=== PATIENT | female | born 1930 | race Caucasian/White ===

== ENCOUNTER 2017-09-27 16:00 | Inpatient (IN) ==
--- NOTE | 2017-09-27 23:25 | Internal Med History&Physical ---
Date of Encounter: 09/27/17 Time of Encounter: 23:03 Internal Medicine - H&P: HPI Admitted From: Intrahospital Transfer Plans for Post Hospital Care: Home History of present illness: Ms. Gonzales is a 87 year old female with past medical history of Severe acid reflux, hernia, OA, and bilateral knee and hip surgery. Pt states she she has woken up about 2 or 3 am since wed with symptoms of acid reflux. States her symptoms have gotten progressively worse. Pt states she had ED done by Dr. Tapia years ago and was told she had an ulcer. Pt states she takes tums frequently and also takes Omeprazole but with little relief. Pt also reports that on Wednesday while she was reading the newspaper her vision became blurry, numbers on the clock where going would "flash" and " disappear." She did not knowing meaning of words. States this persist till this morning so she told her she felt something was wrong and he called the squad. States she has severe OA and is not sure if she has any changes to ambulating as she typically has difficulty walking due to her hx OA. Pt denies difficulty swallowing or speaking. CT head as below. Case was discussed with Dr. Damon who recommended further CVA workup. CODE STATUS: FULL. At michi WBC 12.5, hgb 11.6, hct 34.7, plt 209. troponin <0.03 Na 140, K 3.3, BUN 16, Cr 0.98. lactic 1.0, glucose 128. 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 Further evaluation with contrast-enhanced MRI of the brain is recommended. Past Med Surg Social Fam HX - Past Medical History Medical history: arthritis, hypertension Psychiatric history: no psych history - Social History Smoking Status: Never smoker Smokeless Tobacco Status: No Alcohol use: none Drug use: none - Family History Mother Living Status: Hx Family Cardiac Disorders: Yes ([place]) Hx Family Neurologic Disorders: Yes (3 CVA) Father Living Status: Hx Family Cardiac Disorders: Yes ([place]) Internal Medicine - H&P: Meds Allopurinol [Zyloprim 100 MG] 100 mg PO DAILY 09/27/17 [History] Carvedilol [Coreg] 6.25 mg PO BID 09/27/17 [History] Cholecalciferol (Vitamin D3) [Vitamin D] 1,000 unit PO DAILY 09/27/17 [History] Levothyroxine [Synthroid] 100 mcg PO DAILY 09/27/17 [History] Losartan Potassium [Cozaar] 100 mg PO DAILY 09/27/17 [History] MiraLAX 09/27/17 [History] amLODIPine [Norvasc] 5 mg PO DAILY 09/27/17 [History] predniSONE [Prednisone] 7.5 mg PO DAILY 09/27/17 [History] 3 Allergy/AdvReac Type Severity Reaction Status Date / Time Sulfa (Sulfonamide Allergy Hives Verified 09/27/17 11:28 Antibiotics) All Systems PM: A 10-system review of systems was performed and is negative for pertinent findings except as documented above in the HPI. - Constitutional Vitals: Temp Pulse Resp BP Pulse Ox 98.4 F 69 16 168/73 96 09/27/17 22:58 09/27/17 22:58 09/27/17 22:58 09/27/17 22:58 09/27/17 22:58 General appearance: Present: A&O X 3, no acute distress - Head Head exam: Present: atraumatic, normocephalic - Eye Eye exam: Present: PERRL, conjuntiva pink, sclera anicteric Pupils: Present: PERRL - Neck Neck exam general surgery: Present: supple, trachea midline. Absent: lymphadenopathy - Respiratory Respiratory exam: Present: CTAB. Absent: accessory muscle use, rales, rhonchi, wheezes - Cardiovascular Cardiovascular exam: Present: RRR, +S1, +S2. Absent: diastolic murmur, gallop, rubs, systolic murmur - GI/Abdominal GI/Abdominal exam: Present: normal bowel sounds, soft, no peritoneal signs. Absent: distended, tenderness Additional comments: hiatal hernia - Extremities Exam Extremities exam: Present: warm, radial pulses palpable and symmetrical. Absent : calf tenderness, cyanotic, pedal edema - Neurological Exam Neurological exam: Present: CN II-XII intact, oriented X3, no focal deficits. Absent: pronater drift, facial droop, speech deficit - Skin Skin exam: Present: dry, intact - Assessment and plan (1) CVA (cerebral vascular accident) Current Visit: No Status: Acute Assessment and plan: Will complete CVA work up per neurology recommendation. Will place on ASA and statin. 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 Further evaluation with contrast-enhanced MRI of the brain is recommended. Qualifiers: CVA mechanism: unspecified Qualified Code(s): I63.9 - Cerebral infarction, unspecified (2) Acid reflux Current Visit: Yes Status: Acute Assessment and plan: Protonix BID IV. Consulting GI due to severity of symptoms. Qualifiers: Qualified Code(s): K21.9 - Gastro-esophageal reflux disease without esophagitis (3) Leukocytosis Current Visit: Yes Status: Acute Assessment and plan: Will check urine culture. Will check CBC in am. Qualifiers: Qualified Code(s): D72.829 - Elevated white blood cell count, unspecified (4) Osteoarthritis Current Visit: Yes Status: Acute Assessment and plan: Will resume home meds. Qualifiers: Qualified Code(s): M19.90 - Unspecified osteoarthritis, unspecified site (5) Hypokalemia Current Visit: Yes Status: Acute Assessment and plan: Will replace and recheck in am. (6) Chest pain Current Visit: No Status: Acute Assessment and plan: Will place on ASA, nitro SL prn, will cycle troponin. CP more likely related to hernia and severe acid reflux. Qualifiers: Chest pain type: unspecified Qualified Code(s): R07.9 - Chest pain, unspecified - Time Spent With Patient Total time spent is greater than 50% in coordination of care (as documented) at patient's floor/unit and/or counseling patient: 25 - 35 minutes
[2017-09-27] MEDS ORDERED: Acetaminophen 650 MG RECTAL SUPP RC PRN (23:31)
[2017-09-27] MEDS ORDERED: Acetaminophen 325 MG TABLET PO PRN (23:31)
[2017-09-27] MEDS ORDERED: Nitroglycerin 0.4 MG TAB.SUBL SL PRN (23:31)
[2017-09-27] MEDS ORDERED: Gadolinium Contrast Agent (WT Based) IV PRN (23:31)
[2017-09-27] MEDS ORDERED: Naloxone 0.4 MG/ML INJ IVP PRN (23:31)
[2017-09-27] MEDS: 0.9 % Sodium Chloride 1,000 ML IVC SCH (23:54)
[2017-09-28 00:50] LABS: Basophils % 0.1 %; Eosinophils % 0.3 %; Hematocrit 34.2 % (35.3-44.9); Hemoglobin 11.3 g/dL (11.5-15.4); Immature Granulocytes % 0.5 % (0-4); Lymphocytes # 1.9 K/mcL (0.6-4.6); Lymphocytes % 19.4 %; Mean Corpuscular Hemoglobin 30.9 pg (28.0-33.3); Mean Corpuscular Volume 93.4 fL (83.0-100.0); Mean Platelet Volume 10.6 fL (9.4-12.4); Monocytes # 0.9 K/mcL (0.0-1.3); Neutrophils # 7.1 K/mcL (1.6-8.9); Platelet Count 189 K/mcL (140-400); Red Blood Count 3.66 M/mcL (3.82-4.97); Red Cell Distribution Width 15.9 % (11.5-14.5); Segmented Neutrophils % 70.7 %
[2017-09-28 00:50] LABS: Bilirubin,Urine Negative (Negative); Blood,Urine Negative (Negative); Clarity,Urine Clear (Clear); Color,Urine Yellow (Yellow); Glucose,Urine (UA) Normal (Normal); Ketones,Urine Trace mg/dL (Negative); Leukocyte Esterase,Urine Small (Negative); Nitrite,Urine Negative (Negative); Protein,Urine Negative (Neg-Trace); Specific Gravity,Urine 1.013 (1.010-1.025); Urobilinogen,Urine Normal (Normal)
[2017-09-28 00:52] LABS: Bacteria,Urine None Seen per hpf (None-Few); Hyaline Casts,Urine None Seen per lpf (None-Few); RBC,Urine 0-3 per hpf (0-3); Squamous Epithelial Cell,Urine Few per lpf (None-Few)
[2017-09-28 01:30] LABS: INR 1.1; Prothrombin Time 12.3 Seconds (9.4-12.1)
[2017-09-28 01:51] LABS: Albumin 3.6 g/dL (3.5-5.7); Albumin/Globulin Ratio 1.3 (1.1-2.2); Bilirubin,Total 1.5 mg/dL (0.3-1.0); Calcium 8.8 mg/dL (8.6-10.3); Chol/HDL Ratio 1.9 (0-4.9); Globulin 2.7 g/dL (2.4-3.5); Magnesium 1.8 mg/dL (1.6-2.6); Potassium 3.2 mEq/L (3.5-5.1); Total Protein 6.3 g/dL (6.4-8.9)
[2017-09-28] MEDS: *HR* HYDROcodone/Acet 5/325 mg TABLET PO PRN ×2 (03:25→16:31)
[2017-09-28] MEDS: Pantoprazole 40 MG VIAL IVP SCH ×2 (05:25→16:27)
[2017-09-28] MEDS: predniSONE 5 MG TABLET PO SCH (11:23)
[2017-09-28] MEDS: Cholecalciferol (D-3) 1,000 UNIT TABLET PO SCH (11:23)
[2017-09-28] MEDS: amLODIPine 5 MG TABLET PO SCH (11:23)
[2017-09-28] MEDS: Aspirin Enteric Coated 81 MG Tablet PO SCH (11:23)
[2017-09-28] MEDS: 0.9 % Sodium Chloride 1,000 ML IVC SCH ×2 (11:39→20:43)
--- NOTE | 2017-09-28 12:20 | Gastroenterology Consult Note ---
Date of Encounter: 09/28/17 Time of Encounter: 11:05 - Assessment and plan (1) Acid reflux Current Visit: Yes Status: Acute Assessment and plan: Continue PPI and plan for EGD today to r/o esophagitis, gastritis, duodenitis, PUD, MW tear, or AVM. Qualifiers: Qualified Code(s): K21.9 - Gastro-esophageal reflux disease without esophagitis (2) Hypokalemia Current Visit: Yes Status: Acute Assessment and plan: Replace K prior to EGD. - Time Spent With Patient Total time spent is greater than 50% in coordination of care (as documented) at patient's floor/unit and/or counseling patient: GI History of Present Illness - Data of Consult Patient: new to practice Consult date: 09/28/17 Requesting Physician: Shine Villarreal MD - Consult Narrative Reason for consult: Severe acid reflux History of present illness: Ms. Gonzales is a 87 year old female with PMHx of severe acid reflux, arthritis, HTN who presented to ED with chest discomfort for 3 days. She notices it particularly at night which is try to lay down but insists that the discomfort is still present if she sitting or standing. She denies any actual aggravating or alleviating factors. Pt also reports that on Wednesday while she was reading the newspaper her vision became blurry, numbers on the clock where going would "flash" and " disappear." She did not knowing meaning of words. She was transferred here for further evaluation of possible CVA. We have been consulted to evaluate her reflux. Procedures: EGD 04/21/2012 Dr. Franco: Schatzki's ring, moderate hiatal hernia. Colonoscopy 04/21/2012 Dr. Franco: Terminal ileum ulcer, internal hemorrhoids. NSAIDs: None Anticoagulation: None Past Med Surg Social Fam HX - Past Medical History Medical history: arthritis, hypertension Psychiatric history: no psych history - Social History Smoking Status: Never smoker Smokeless Tobacco Status: No Alcohol use: none Drug use: none - Family History Mother Living Status: Hx Family Cardiac Disorders: Yes ([place]) Hx Family Neurologic Disorders: Yes (3 CVA) Father Living Status: Hx Family Cardiac Disorders: Yes ([place]) - Gastrointestinal Gastrointestinal: Present: as per HPI - Constitutional Constitutional: as per HPI - EENT Eyes: as per HPI Ears: Present: as per HPI Nose, mouth and throat: Present: as per HPI - Cardiovascular Cardiovascular ROS: Present: as per HPI - Respiratory Respiratory IM: Present: as per HPI - Genitourinary Genitourinary: Absent: change in color, Urinary frequency - Neurological ROS Neurological GI: Present: as per HPI - Hematologic/Lymphatic Hematologic/Lymphatic pediatric: Present: as per HPI - Musculoskeletal Musculoskeletal ROS GI: Present: as per HPI - Integumentary Integumentary GI: Present: as per HPI - Psychiatric ROS Psychiatric GI: Present: as per HPI - Endocrine Endocrine IM: Present: as per HPI - Constitutional Vitals: Temp Pulse Resp BP Pulse Ox 97.7 F 69 17 166/72 96 09/28/17 11:01 09/28/17 11:01 09/28/17 11:01 09/28/17 11:01 09/28/17 11:01 General appearance: Present: cooperative, A&O X 3, no acute distress, answers questions appropriately - Head Head exam: Present: atraumatic, normocephalic - Eye Eye exam: Present: normal appearance, sclera anicteric - ENT ENT exam: Present: mucous membranes dry - Neck Neck exam general surgery: Present: normal inspection, trachea midline - Respiratory Respiratory exam: Present: CTAB. Absent: rales, rhonchi, wheezes - Cardiovascular Cardiovascular exam: Present: RRR, +S1, +S2 - GI/Abdominal GI/Abdominal exam: Present: normal bowel sounds, soft, tenderness (epigastric tenderness), no peritoneal signs. Absent: distended, firm, guarding - Rectal Rectal exam: Present: deferred - Extremities Exam Extremities exam: Present: warm - Neurological Exam Neurological exam: Present: no focal deficits - Psychiatric Psychiatric exam: Present: normal affect, normal mood - Skin Skin exam: Present: dry, intact, normal color, warm Results - Labs CBC & Chem 7: 09/28/17 00:30 09/28/17 00:30 Labs: Last Result Calcium 8.8 mg/dL (8.6-10.3) 09/28/17 00:30 Troponin I 0.04 ng/mL (< 0.04) H* 09/28/17 05:48 Triglycerides 62 mg/dL (< 150) 09/28/17 00:30 Entire Visit Hgb 11.3 g/dL (11.5-15.4) L 09/28/17 00:30 Hct 34.2 % (35.3-44.9) L 09/28/17 00:30 PT 12.3 Seconds (9.4-12.1) H 09/28/17 00:30 Total Bilirubin 1.5 mg/dL (0.3-1.0) H 09/28/17 00:30 AST 45 Units/L (13-39) H 09/28/17 00:30 ALT 39 Units/L (7-52) 09/28/17 00:30 - ABG ABG results: PT/INR, D-dimer PT 12.3 Seconds (9.4-12.1) H 09/28/17 00:30 - Impressions Impressions Echocardiogram 09/28/17 09:00 Impressions: LVEF 65%. Normal LV chamber size, wall thickness and function. Moderate left ventricular diastolic dysfunction. Normal right ventricular structure and function. Mild tricuspid regurgitation. Moderate pulmonary hypertension. No evidence of a PFO with agitated saline contrast. Left Ventricular Wall Motion: Rest Echo Findings All wall segments showed normal motion. Findings: Study Quality * Technically adequate exam. ECG Findings * Normal sinus rhythm. Left Ventricle * LVEF 65%. * Normal LV chamber size, wall thickness and function. * Moderate left ventricular diastolic dysfunction. Right Ventricle * Normal right ventricular structure and function. Left Atrium * Moderately dilated left atrium. Right Atrium * Mildly dilated right atrium. Aortic Valve * Trileaflet aortic valve. * No aortic regurgitation. * No aortic stenosis. Mitral Valve * Normal mitral valve structure and function. * No mitral stenosis. * Trace mitral regurgitation. Tricuspid Valve * Normal tricuspid valve structure. * Mild tricuspid regurgitation. * Moderate pulmonary hypertension. Pulmonic Valve * Normal pulmonic valve structure and function. * Trace pulmonic regurgitation. Aorta * Normally sized aortic root. IVC * Normal IVC dimensions and inspiratory collapse. Pulmonary Artery * Normal visualized portions of the main pulmonary artery. Interatrial Septum * No evidence of a PFO with agitated saline contrast. Pericardium * There is a trivial pericardial effusion present. Consult Discharge Plan - Plan Referrals: Bartolome Tanner, [employer]SEM[employer]ER [Primary Care Provider] -
--- NOTE | 2017-09-28 13:13 | Neurology - Consult Note ---
Date of Encounter: 09/28/17 Time of Encounter: 11:30 Assessment and Plan (1) CVA (cerebral vascular accident) Current Visit: Yes Status: Acute Patient with likely CVA. Patient's symptoms have improved per patient. CT scan showed: "Extensive parenchymal hypodensity in the distribution of the left COIL TIER, most suspicious for an acute to subacute infarct." Agree with plan to complete full stroke work up. ECHO: "LVEF 65%. Normal LV chamber size, wall thickness and function. Moderate left ventricular diastolic dysfunction. Normal right ventricular structure and function. Mild tricuspid regurgitation. Moderate pulmonary hypertension. No evidence of a PFO with agitated saline contrast." Carotid U/S: "The bilateral carotid arteries have minimal plaque throughout" MR brain performed, consistent with stroke on my read, official read still pending. MRA neck ordered OT/PT consult ordered. Continue with ASA and Statin. Continue stroke work up. Qualifiers: CVA mechanism: unspecified Qualified Code(s): I63.9 - Cerebral infarction, unspecified History of Present Illness HPI: Ms. Gonzales is a 87 year old female c PMHx of arthritis, hypertension, GERD, PVCs , Macular degeneration, reports to the [facility] c/o Visual disturbance she first noticed Wednesday morning upon waking. Patient reports she woke up on Wednesday morning and sat down to read the paper and couldn't understand some words. She looked at the clock and couldn't read the numbers and then some numbers just disappeared. She reports Wednesday she had some R sided neck pain, but chalks this up to her chronic neck OA. She reports she has had a headache since onset of her symptoms. She describes headache as all over and throbbing. She has also had Strong GERD symptoms since Wednesday night. She denies numbness, tingling, focal weakness, slurred speech, facial droop. She went to [facility] where she got a CT head which showed: "Extensive parenchymal hypodensity in the distribution of the left COIL TIER, most suspicious for an acute to subacute infarct. " She was started on Aspirin and Plavix and transferred to [facility]. She has been scheduled for brain MRI, MRA head and neck, ECHO, and Carotid U/S. Past Med Surg Social Fam HX - Past Medical History Medical history: arthritis, hypertension Psychiatric history: no psych history - Social History Smoking Status: Never smoker Smokeless Tobacco Status: No Alcohol use: none Drug use: none - Family History Mother Living Status: Hx Family Cardiac Disorders: Yes ([place]) Hx Family Neurologic Disorders: Yes (3 CVA) Father Living Status: Hx Family Cardiac Disorders: Yes ([place]) Medications and Allergies Allopurinol [Zyloprim 100 MG] 100 mg PO DAILY 09/27/17 [History] Carvedilol [Coreg] 6.25 mg PO BID 09/27/17 [History] Cholecalciferol (Vitamin D3) [Vitamin D] 1,000 unit PO DAILY 09/27/17 [History] Levothyroxine [Synthroid] 100 mcg PO DAILY 09/27/17 [History] Losartan Potassium [Cozaar] 100 mg PO DAILY 09/27/17 [History] amLODIPine [Norvasc] 5 mg PO DAILY 09/27/17 [History] predniSONE [Prednisone] 7.5 mg PO DAILY 09/27/17 [History] 3 Allergy/AdvReac Type Severity Reaction Status Date / Time Sulfa (Sulfonamide Allergy Hives Verified 09/27/17 11:28 Antibiotics) All Systems: The remainder of the systems were reviewed and are negative Review of Systems: As Per HPI Physical Examination - Vital Signs Vital Signs: Initial Vital Signs Temp Pulse Resp BP Pulse Ox 98.4 F 62 18 157/74 95 09/27/17 17:50 09/27/17 17:50 09/27/17 17:50 09/27/17 17:50 09/27/17 17:50 - Constitutional General appearance: comfortable - Neurologic Sensorimotor examination: intact Detailed motor examination: grossly full strength in all extremities, full strength in all major muscle groups Motor examination - right side: 4/5: hip flexors (limited by OA/Pain), 5/5: deltoids, biceps, triceps, wrist flexion, wrist extension, ecological modeler, tibialis Anterior, quadriceps, toe extension (EHL), plantarflexion Motor examination - left side: 4/5: hip flexors (limited by OA/ Pain), 5/5: deltoids, biceps, triceps, wrist flexion, wrist extension, ecological modeler, quadriceps, tibialis Anterior, toe extension (EHL), plantarflexion Detailed sensory examination: intact, light touch Reflexes: Biceps: 2+, Brachioradialis: 2+, Patella: 2+ Mental Status Examination: awake, alert, oriented to person, oriented to place, oriented to time, follows commands appropriately, answers questions appropriately Cranial nerve examination: PERRL, EOMI, visual hernandez intact, sensory to face intact, no facial asymmetry is present, no dysarthria, hearing is intact symmetrically, soft palate elevates bilaterally upon phonation, flexes SCM and trapezius muscles symmetrically with full power, tongue protrudes midline, no atrophy or facial fasiculations present Cerebellar examination: no dysmetria, performs finger to nose and heel to martinez symmetrically without ataxia Results - Laboratory Findings CBC and BMP: 09/28/17 00:30 09/28/17 00:30 Abnormal lab findings: Abnormal lab results RBC 3.66 M/mcL (3.82-4.97) L 09/28/17 00:30 Hgb 11.3 g/dL (11.5-15.4) L 09/28/17 00:30 Hct 34.2 % (35.3-44.9) L 09/28/17 00:30 RDW 15.9 % (11.5-14.5) H 09/28/17 00:30 PT 12.3 Seconds (9.4-12.1) H 09/28/17 00:30 Potassium 3.2 mEq/L (3.5-5.1) L 09/28/17 00:30 Carbon Dioxide 22 mEq/L (23-29) L 09/28/17 00:30 Est GFR ( Amer) 59 (> 60) L 09/28/17 00:30 Est GFR (Non-Af Amer) 48 (> 60) L 09/28/17 00:30 POC Glucose 110 mg/dL (70-99) H 09/28/17 07:32 Total Bilirubin 1.5 mg/dL (0.3-1.0) H 09/28/17 00:30 AST 45 Units/L (13-39) H 09/28/17 00:30 Troponin I 0.04 ng/mL (< 0.04) H* 09/28/17 05:48 Serum Total Protein 6.3 g/dL (6.4-8.9) L 09/28/17 00:30 HDL Cholesterol 71 mg/dL (40-59) H 09/28/17 00:30 Urine Ketones Trace mg/dL (Negative) H 09/28/17 00:15 Ur Leukocyte Esterase Small (Negative) H 09/28/17 00:15 Urine Microscopic WBC 5-15 per hpf (0-3) H 09/28/17 00:15 Ur Culture Indicated? YES (NO) A 09/28/17 00:15 Consult Discharge Plan - Plan Referrals: Bartolome Tanner, [employer]PS[employer]ER [Primary Care Provider] -
[2017-09-28] MEDS ORDERED: *HR* Propofol 200 MG/20 ML VIAL IVP ONE (13:16)
[2017-09-28] MEDS ORDERED: Lidocaine -MPF 2% 2 ML VIAL ONE (13:26)
--- NOTE | 2017-09-28 13:40 | Anesthesia Evaluation PreOp ---
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 History: CVA (This admission), Other (Arthritis - on steroids) Other Medical History: GERD (Severe), Other (Osteoporosis, Hypokalemia) Anesthesia History: No Prior Anesthetic Complications, Past Anesthesia Alcohol Use: none Drug use: none Medications and Allergies Allopurinol [Zyloprim 100 MG] 100 mg PO DAILY 09/27/17 [History] Carvedilol [Coreg] 6.25 mg PO BID 09/27/17 [History] Cholecalciferol (Vitamin D3) [Vitamin D] 1,000 unit PO DAILY 09/27/17 [History] Levothyroxine [Synthroid] 100 mcg PO DAILY 09/27/17 [History] Losartan Potassium [Cozaar] 100 mg PO DAILY 09/27/17 [History] amLODIPine [Norvasc] 5 mg PO DAILY 09/27/17 [History] predniSONE [Prednisone] 7.5 mg PO DAILY 09/27/17 [History] 3 Allergy/AdvReac Type Severity Reaction Status Date / Time Sulfa (Sulfonamide Allergy Hives Verified 09/27/17 11:28 Antibiotics) - Meds/Allergy Pre-op Review Medications Reviewed: Yes Allergies Reviewed: Yes Beta Blockers on Current Med List: No Anesthesia Results - Labs 09/28/17 00:30 09/28/17 00:30 - Imaging EKG: report reviewed (SINUS RHYTHM Poor R wave progression INFERIOR MYOCARDIAL INFARCTION, PROBABLY OLD) Additional studies: TTE 09/28: LVEF 65%. Normal LV chamber size, wall thickness and function. Moderate left ventricular diastolic dysfunction. Normal right ventricular structure and function. Mild tricuspid regurgitation. Moderate pulmonary hypertension. No evidence of a PFO with agitated saline contrast. 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
--- NOTE | 2017-09-28 18:07 | Internal Med Progress Note ---
Date of Encounter: 09/28/17 Time of Encounter: 18:05 - Assessment and plan (1) CVA (cerebral vascular accident) Current Visit: No Status: Inactive Assessment and plan: Neurology on board. Pt is on ASA and Zocor. Results below. Awaiting further recommendations. PT/OT/Speech non-contrast CTH shows IMPRESSION: Extensive parenchymal hypodensity in the distribution of the left CHECKER, most suspicious for an acute to subacute infarct. Further evaluation with contrast-enhanced MRI of the brain is recommended. 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 Moderate background chronic microvascular ischemic disease. MRA neck IMPRESSION: 1. 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 2. Otherwise unremarkable MRA of the neck. Carotid dopplers Impressions: The bilateral carotid arteries have minimal plaque throughout Qualifiers: CVA mechanism: unspecified Qualified Code(s): I63.9 - Cerebral infarction, unspecified (2) Acid reflux Current Visit: Yes Status: Acute Assessment and plan: Severe acid reflux. Pt seen by GI and planing for EGD. Continue with protonix. Qualifiers: Qualified Code(s): K21.9 - Gastro-esophageal reflux disease without esophagitis (3) Leukocytosis Current Visit: Yes Status: Acute Assessment and plan: resolved. Qualifiers: Qualified Code(s): D72.829 - Elevated white blood cell count, unspecified (4) Osteoarthritis Current Visit: Yes Status: Acute Qualifiers: Qualified Code(s): M19.90 - Unspecified osteoarthritis, unspecified site (5) Hypokalemia Current Visit: Yes Status: Acute Assessment and plan: K 40 mEq x one PO given 09/27/2017. Will give oe tme K 40 mEq IV x one now.Will check in few hours. (6) Chest pain Current Visit: No Status: Inactive Assessment and plan: Pt's chest pain likely GI related. Troponin <0.04 x 3. Pt denies CP or SOB. Qualifiers: Chest pain type: unspecified Qualified Code(s): R07.9 - Chest pain, unspecified - Time Spent With Patient Total time spent is greater than 50% in coordination of care (as documented) at patient's floor/unit and/or counseling patient: - Subjective Interval history: Ms. Gonzales is a 87 year old female with past medical history of Severe acid reflux, hernia, OA, and bilateral knee and hip surgery. - Constitutional Vitals: Temp Pulse Resp BP Pulse Ox 98 F 76 16 138/90 97 09/28/17 15:30 09/28/17 16:26 09/28/17 16:26 09/28/17 16:26 09/28/17 16:26 General appearance: Present: A&O X 3, no acute distress - Head Head exam: Present: atraumatic, normocephalic - Eye Eye exam: Present: PERRL, conjuntiva pink, sclera anicteric Pupils: Present: PERRL - Neck Neck exam general surgery: Present: supple, trachea midline. Absent: lymphadenopathy - Respiratory Respiratory exam: Present: CTAB. Absent: accessory muscle use, rales, rhonchi, wheezes - Cardiovascular Cardiovascular exam: Present: RRR, +S1, +S2. Absent: diastolic murmur, gallop, rubs, systolic murmur - GI/Abdominal GI/Abdominal exam: Present: normal bowel sounds, soft, no peritoneal signs. Absent: distended, tenderness - Extremities Exam Extremities exam: Present: warm, radial pulses palpable and symmetrical. Absent : calf tenderness, cyanotic, pedal edema - Neurological Exam Neurological exam: Present: CN II-XII intact, oriented X3, no focal deficits. Absent: pronater drift, facial droop, speech deficit - Skin Skin exam: Present: dry, intact Internal Medicine: Result - Labs CBC & Chem 7: 09/28/17 00:30 09/28/17 00:30 Labs: Short CBC 09/28/17 Range/Units 00:30 WBC 10.0 (4.3-11.1) K/mcL Hgb 11.3 L (11.5-15.4) g/dL Hct 34.2 L (35.3-44.9) % Plt Count 189 (140-400) K/mcL Neutrophils # 7.1 (1.6-8.9) K/mcL BMP 09/28/17 00:30 Sodium 140 Potassium 3.2 L Chloride 106 Carbon Dioxide 22 L BUN 18 Creatinine 1.07 Glucose 100 Calcium 8.8 Cardiac Enzymes 09/27/17 09/28/17 09/28/17 Range/Units 23:02 00:30 05:48 Troponin I 0.04 H* 0.04 H* 0.04 H* (< 0.04) ng/mL 09/28/17 09/28/17 Range/Units 11:38 16:47 Troponin I 0.04 H* 0.04 H* (< 0.04) ng/mL Liver Function 09/28/17 Range/Units 00:30 Total Bilirubin 1.5 H (0.3-1.0) mg/dL AST 45 H (13-39) Units/L ALT 39 (7-52) Units/L Alkaline Phosphatase 64 (34-104) Units/L Albumin 3.6 (3.5-5.7) g/dL Urine 09/28/17 Range/Units 00:15 Urine Color Yellow (Yellow) Urine Clarity Clear (Clear) Urine pH 7.0 (5.0-8.0) pH Units Ur Specific [place] 1.013 (1.010-1.025) Urine Protein Negative (Neg-Trace) mg/dL Urine Glucose (UA) Normal (Normal) mg/dL - ABG Interpretation ABG results: PT/INR, D-dimer PT 12.3 Seconds (9.4-12.1) H 09/28/17 00:30 - Impressions Impressions Echocardiogram 09/28/17 09:00 Impressions: LVEF 65%. Normal LV chamber size, wall thickness and function. Moderate left ventricular diastolic dysfunction. Normal right ventricular structure and function. Mild tricuspid regurgitation. Moderate pulmonary hypertension. No evidence of a PFO with agitated saline contrast. Left Ventricular Wall Motion: Rest Echo Findings All wall segments showed normal motion. Findings: Study Quality * Technically adequate exam. ECG Findings * Normal sinus rhythm. Left Ventricle * LVEF 65%. * Normal LV chamber size, wall thickness and function. * Moderate left ventricular diastolic dysfunction. Right Ventricle * Normal right ventricular structure and function. Left Atrium * Moderately dilated left atrium. Right Atrium * Mildly dilated right atrium. Aortic Valve * Trileaflet aortic valve. * No aortic regurgitation. * No aortic stenosis. Mitral Valve * Normal mitral valve structure and function. * No mitral stenosis. * Trace mitral regurgitation. Tricuspid Valve * Normal tricuspid valve structure. * Mild tricuspid regurgitation. * Moderate pulmonary hypertension. Pulmonic Valve * Normal pulmonic valve structure and function. * Trace pulmonic regurgitation. Aorta * Normally sized aortic root. IVC * Normal IVC dimensions and inspiratory collapse. Pulmonary Artery * Normal visualized portions of the main pulmonary artery. Interatrial Septum * No evidence of a PFO with agitated saline contrast. Pericardium * There is a trivial pericardial effusion present. Brain MRI 09/28/17 11:55 IMPRESSION: Moderate sized, acute left ventral occipital and temporal lobe infarct, in the left posterior cerebral artery vascular territory distribution. Moderate background chronic microvascular ischemic disease. The findings were sent to the Radiology Results Communication [facility] at 1:48 pm on 09/28/2017to be communicated to a licensed caregiver. D/ / 09/28/2017 14:09:30 Melony Hamm MD / [facility] Interpreting Provider: Melony Hamm MD Neck MRA 09/28/17 11:55 IMPRESSION: 1. 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 2. Otherwise unremarkable MRA of the neck. D/ / 09/28/2017 14:03:22 Timothy Honeycutt MD / [facility] Interpreting Provider: Timothy Honeycutt MD Consult Discharge Plan - Plan Referrals: Bartolome Tanner, DIRECTOR OF REGULATORY AFFAIRS [Primary Care Provider] -
--- NOTE | 2017-09-28 19:03 | Anesthesia Evaluation Post Op ---
Date of Encounter: 09/28/17 Time of Encounter: 14:38 Notes: Patient's vital signs have been reviewed. Patient is stable postoperatively and has adequately recovered from anesthesia. Patient is determined to have stable airway patency and respiratory function including respiratory rate and oxygen saturation. Patient has a stable heart rate, blood pressure and adequate hydration. Patients mental status is acceptable. Patients temperature is appropriate. Pain and nausea are adequately controlled. - Discharge PostOp Status: Transfer Patient to floor
[2017-09-29] MEDS: Pantoprazole 40 MG VIAL IVP SCH (05:40)
[2017-09-29] MEDS: Aspirin Enteric Coated 81 MG Tablet PO SCH (08:53)
[2017-09-29] MEDS: amLODIPine 5 MG TABLET PO SCH (08:54)
[2017-09-29] MEDS: predniSONE 5 MG TABLET PO SCH (08:54)
[2017-09-29] MEDS: Cholecalciferol (D-3) 1,000 UNIT TABLET PO SCH (08:55)
[2017-09-29 11:20] VITALS: BP 122/69
--- NOTE | 2017-09-29 12:50 | Discharge Summary ---
- NOTES TO OUTPATIENT PROVIDER Notes to Outpatient Provider: Patient presented with signs and symptoms of CVA including blurred vision, receptive aphasia and headache. MRI brain showed multiple foci of acute ischemic infarct in the right MCA territory concerning for thromboembolic events. 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 Minimal neurological deficits. Continue to have mild headache, blurred vision and aphasia has subsided. No additional neurological deficits noted. She has been instructed to follow-up with PCP within 1 week of discharge and to follow-up with neurology in 1-2 weeks of discharge Orders not resulted at time of discharge: Pending orders 09/27/17 23:07 Occult Blood, Gastric [BF] Routine 09/27/17 23:16 Culture,Blood [BC] Routine 09/28/17 00:15 Culture,Urine [RM] Routine Date of Encounter: 09/29/17 Time of Encounter: 12:45 - Discharge Diagnosis (1) CVA (cerebral vascular accident) Status: Acute Qualifiers: CVA mechanism: unspecified Qualified Code(s): I63.9 - Cerebral infarction, unspecified (2) Chest pain Status: Acute (3) Acid reflux Status: Acute Qualifiers: Qualified Code(s): K21.9 - Gastro-esophageal reflux disease without esophagitis (4) Hypokalemia Status: Acute (5) Leukocytosis Status: Acute Qualifiers: Qualified Code(s): D72.829 - Elevated white blood cell count, unspecified Hospital course: Ms. Gonzales is a 87 year old female Please see assessment and plan for hospital course Discharge discussed with: patient, nurse, case management, cosmetic consultant - Time Spent with Patient Total time spent providing and/or coordinating discharge services: - Discharge Medications Home Medications: Allopurinol [Zyloprim 100 MG] 100 mg PO DAILY 09/27/17 [History] Carvedilol [Coreg] 6.25 mg PO BID 09/27/17 [History] Cholecalciferol (Vitamin D3) [Vitamin D] 1,000 unit PO DAILY 09/27/17 [History] Levothyroxine [Synthroid] 100 mcg PO DAILY 09/27/17 [History] Losartan Potassium [Cozaar] 100 mg PO DAILY 09/27/17 [History] amLODIPine [Norvasc] 5 mg PO DAILY 09/27/17 [History] predniSONE [Prednisone] 7.5 mg PO DAILY 09/27/17 [History] Allergies/Adverse Reactions: 3 Allergy/AdvReac Type Severity Reaction Status Date / Time Sulfa (Sulfonamide Allergy Hives Verified 09/27/17 11:28 Antibiotics) Date of admission: 09/27/17 23:55 Primary care physician: Bartolome Tanner CNP Consults: 09/27/17 23:07 Consult to Neurology [CONS] Routine Consulting Provider: Neurology [facility] Reason for Consult: CVA Call Completed: Yes 09/27/17 23:08 Consult to Gastroenterology [CONS] Routine Consulting Provider: Gastroenterology Jocelyn Reason for Consult: severe acid reflux, likely related to hernia. Pt symptomatic Call Completed: No 09/27/17 23:32 Consult for Pharmacy Education [CONS] Stat Reason for Consult: cva Call Completed: No Consult to Physical Therapy [CONS] Routine Comment: Evaluate, develop and implement POC Reason for Consult: cva Does patient have active BEDREST order?: No Is patient medically & hemodynamically stable?: No Patient assessed for mobility or mobilized this visit?: No Consult to Bulbs Farmworker [CONS] Routine Reason for SW Consult: cva dc planning Discharging clinician: Thiago Bender Anticipated date of discharge: 09/29/17 - Constitutional Vitals: Temp Pulse Resp BP Pulse Ox 98.5 F 69 17 122/69 94 09/29/17 11:13 09/29/17 11:13 09/29/17 11:13 09/29/17 11:13 09/29/17 11:13 General appearance: Present: A&O X 3, no acute distress - Head Head exam: Present: atraumatic, normocephalic - Eye Eye exam: Present: PERRL, conjuntiva pink, sclera anicteric Pupils: Present: PERRL - Neck Neck exam general surgery: Present: supple, trachea midline. Absent: lymphadenopathy - Respiratory Respiratory exam: Present: CTAB. Absent: accessory muscle use, rales, rhonchi, wheezes - Cardiovascular Cardiovascular exam: Present: RRR, +S1, +S2. Absent: diastolic murmur, gallop, rubs, systolic murmur - GI/Abdominal GI/Abdominal exam: Present: normal bowel sounds, soft, no peritoneal signs. Absent: distended, tenderness - Extremities Exam Extremities exam: Present: warm, radial pulses palpable and symmetrical. Absent : calf tenderness, cyanotic, pedal edema - Neurological Exam Neurological exam: Present: CN II-XII intact, oriented X3, no focal deficits. Absent: pronater drift, facial droop, speech deficit - Skin Skin exam: Present: dry, intact - Patient Status Disposition: Home, Self-Care Condition: Fair Overall status at discharge: patient is progressing back to baseline - Discharge Instructions Follow Up With: Bartolome Tanner CNP [Primary Care Provider] - 10/08/17 11:40 am - Diet and Activity Activity: resume usual activities as tolerated Diet: advance to your usual diet
[2017-09-29] MEDS: 0.9 % Sodium Chloride 1,000 ML IVC SCH (13:15)
--- NOTE | 2017-09-29 14:00 | Neurology Progress Note ---
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 Stroke work up completed. Echocardiography showed normal LVEF 65%, no regional wall motion abnormality, no valvular disease, no PFO. carotid artery duplex is reported unremarkable study. Patient has no focal neurological deficits. Visual difficulty resolved. Continue aspirin 81mg daily. Continue statin therapy. okay to discharge home. Qualifiers: CVA mechanism: stenosis Precerebral and cerebral artery: vertebral artery Laterality of affected vessel: right Qualified Code(s): I63.211 - Cerebral infarction due to unspecified occlusion or stenosis of right vertebral artery Subjective Principal diagnosis: CVA Interval history: Patient seen and examined. Patient is feeling fine and denies any visual disturbances. She is taking Aspirin 81mg daily. MRI of brain completed and reported acute infarct involving the left occipital region. MRA of neck showed severe left vertebral artery stenosis. Objective - Constitutional Vitals: Temp Pulse Resp BP Pulse Ox 98.5 F 69 17 122/69 94 09/29/17 11:13 09/29/17 11:13 09/29/17 11:13 09/29/17 11:13 09/29/17 11:13 General appearance: Present: cooperative, A&O X 3, no acute distress, answers questions appropriately - Neurological Exam Motor Examination: Present: grossly full strength in all extremities, full strength in all major muscle groups Motor examination - right side: 5/5: deltoids, biceps, triceps, wrist flexion, wrist extension, insurance customer service specialist, hip flexors, tibialis Anterior, quadriceps, toe extension (EHL), plantarflexion Motor examination - left side: 4/5: hip flexors (limited by OA/ Pain), 5/5: deltoids, biceps, triceps, wrist flexion, wrist extension, insurance customer service specialist, quadriceps, tibialis Anterior, toe extension (EHL), plantarflexion Sensation intact: Present: intact, light touch Reflexes: Biceps: 1+, Triceps: 1+, Brachioradialis: 1+, Patella: 1+, Achilles: 1 + Mental Status Examination: Present: awake, alert, oriented to person, oriented to place, oriented to time, follows commands appropriately, answers questions appropriately Cranial nerve examination: Present: PERRL, EOMI, visual hernandez intact, sensory to face intact, no facial asymmetry is present, no dysarthria, hearing is intact symmetrically, soft palate elevates bilaterally upon phonation, flexes SCM and trapezius muscles symmetrically with full power, tongue protrudes midline, no atrophy or facial fasiculations present Cerebellar examination: Present: no dysmetria, performs finger to nose and heel to martinez symmetrically without ataxia Results - Laboratory Findings CBC and BMP: 09/28/17 00:30 09/29/17 06:26 Abnormal lab findings: Abnormal lab results RBC 3.66 M/mcL (3.82-4.97) L 09/28/17 00:30 Hgb 11.3 g/dL (11.5-15.4) L 09/28/17 00:30 Hct 34.2 % (35.3-44.9) L 09/28/17 00:30 RDW 15.9 % (11.5-14.5) H 09/28/17 00:30 PT 12.3 Seconds (9.4-12.1) H 09/28/17 00:30 Carbon Dioxide 22 mEq/L (23-29) L 09/28/17 00:30 Est GFR ( Amer) 59 (> 60) L 09/28/17 00:30 Est GFR (Non-Af Amer) 48 (> 60) L 09/28/17 00:30 POC Glucose 139 mg/dL (70-99) H 09/28/17 16:40 Total Bilirubin 1.5 mg/dL (0.3-1.0) H 09/28/17 00:30 AST 45 Units/L (13-39) H 09/28/17 00:30 Troponin I 0.04 ng/mL (< 0.04) H* 09/28/17 16:47 Serum Total Protein 6.3 g/dL (6.4-8.9) L 09/28/17 00:30 HDL Cholesterol 71 mg/dL (40-59) H 09/28/17 00:30 Urine Ketones Trace mg/dL (Negative) H 09/28/17 00:15 Ur Leukocyte Esterase Small (Negative) H 09/28/17 00:15 Urine Microscopic WBC 5-15 per hpf (0-3) H 09/28/17 00:15 Ur Culture Indicated? YES (NO) A 09/28/17 00:15 - Diagnostic Findings Additional findings: Impressions: The bilateral carotid arteries have minimal plaque throughout Recommendations: After imaging the patient returned home. Findings Carotid Duplex: Right: The right proximal common carotid artery has a PSV of 62 cm/s and a EDV of 9 cm/s. The right mid common carotid artery has a PSV of 66 cm/s and a EDV of 11 cm/s. The right distal common carotid artery has a PSV of 68 cm/s and a EDV of 16 cm/s. There is nonstenotic plaque in the right bifurcation with a PSV of 70 cm/s and a EDV of 15 cm/s. There is calcified plaque. There is nonstenotic plaque in the right proximal internal carotid artery with a PSV of 52 cm/s and a EDV of 13 cm/s. There is smooth heterogeneous plaque. The right mid internal carotid artery has a PSV of 109 cm/s and a EDV of 37 cm/s. The right distal internal carotid artery has a PSV of 94 cm/s and a EDV of 28 cm/s. There is nonstenotic plaque in the right eca with a PSV of 173 cm/s and a EDV of 15 cm/s. There is calcified plaque. The right vertebral artery has a PSV of 59 cm/s and a EDV of 14 cm/s. Left: The left proximal common carotid artery has a PSV of 101 cm/s and a EDV of 12 cm/s. The left mid common carotid artery has a PSV of 103 cm/s and a EDV of 14 cm/s. The left distal common carotid artery has a PSV of 82 cm/s and a EDV of 14 cm/s. There is nonstenotic plaque in the left bifurcation with a PSV of 83 cm/s and a EDV of 20 cm/s. There is calcified plaque. There is nonstenotic plaque in the left proximal internal carotid artery with a PSV of 65 cm/s and a EDV of 15 cm/s. There is smooth heterogeneous plaque. The left mid internal carotid artery has a PSV of 82 cm/s and a EDV of 20 cm/s. The left distal internal carotid artery has a PSV of 82 cm/s and a EDV of 21 cm/s. The left eca has a PSV of 140 cm/s and a EDV of 9 cm/s. The left vertebral artery has a PSV of 45 cm/s and a EDV of 7 cm/s. Prior Study: No prior study available for comparison. Carotid Results Right PSV EDV Assessment Proximal CCA 62 9 Normal Mid CCA 66 11 Normal Distal CCA 68 16 Normal Bifurcation 70 15 Non Stenotic Plaque Proximal ICA 52 13 Non Stenotic Plaque Mid ICA 109 37 Normal Distal ICA 94 28 Normal ECA 173 15 Non Stenotic Plaque Vertebral Artery 59 14 Normal Left PSV EDV Assessment Proximal CCA 101 12 Normal Mid CCA 103 14 Normal Distal CCA 82 14 Normal Bifurcation 83 20 Non Stenotic Plaque Proximal ICA 65 15 Non Stenotic Plaque Mid ICA 82 20 Normal Distal ICA 82 21 Normal ECA 140 9 Normal Vertebral Artery 45 7 Normal Ratio's Right ICA/CCA Ratio: 1.65 ICA/CCA Values: 109/66 Left ICA/CCA Ratio: 0.80 ICA/CCA Values: 82/103 Updated by Corey Kang MD on 09/28/2017 12:30:48 PM electronically signed on 09/28/2017 12:31:15 PM with status of Final EV/EV echocardiogram Impressions: LVEF 65%. Normal LV chamber size, wall thickness and function. Moderate left ventricular diastolic dysfunction. Normal right ventricular structure and function. Mild tricuspid regurgitation. Moderate pulmonary hypertension. No evidence of a PFO with agitated saline contrast. Consult Discharge Plan - Plan Referrals: Bartolome Tanner, MICA MACHINE OPERATOR [Primary Care Provider] - 10/08/17 11:40 am
--- NOTE | 2017-09-29 14:55 | Discharge Summary ---
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 No focal neurological deficits. Patient being discharged with 81 mg aspirin daily and statin therapy. Instructed to follow-up with PCP within 1 week of discharge. Orders not resulted at time of discharge: Pending orders 09/27/17 23:07 Occult Blood, Gastric [BF] Routine 09/27/17 23:16 Culture,Blood [BC] Routine 09/28/17 00:15 Culture,Urine [RM] Routine Date of Encounter: 09/29/17 Time of Encounter: 14:53 - Discharge Diagnosis (1) CVA (cerebral vascular accident) Priority: Primary Status: Acute Assessment and Plan: Presented with signs and symptoms of CVA Receptive aphasia, blurred vision and headache These symptoms have since resolved Developed right occipital ischemic infarct Likely related to right WEARING [employer] [place]AKER branch and intracranial atherosclerosis MRI showed-Moderate sized, acute left ventral occipital and temporal lobe infarct, in the left posterior cerebral artery vascular territory distribution. 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 States the patient is okay to discharge Uneventful hospital course. She has cannot be given 81 mg aspirin daily and started on a statin drug She has been instructed to follow-up with her PCP within 1 week of discharge. Additionally, she was discharged to return to the ED should stroke signs or symptoms return. Patient verbalizes understanding denies any further questions. 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 Gonzales is a 87 year old female please see assessment and plan for hospital course Discharge discussed with: patient, nurse - Time Spent with Patient Total time spent providing and/or coordinating discharge services: Less than 30 minutes - Discharge Medications Prescriptions: Aspirin Enteric Coated [Aspirin EC] 81 mg PO DAILY 30 Days #30 tablet. Simvastatin [Zocor] 20 mg PO HS 30 Days #30 tablet Home Medications: Allopurinol [Zyloprim 100 MG] 100 mg PO DAILY 09/27/17 [History] Carvedilol [Coreg] 6.25 mg PO BID 09/27/17 [History] Cholecalciferol (Vitamin D3) [Vitamin D3] 1,000 unit PO DAILY 09/27/17 [History] Levothyroxine [Synthroid] 100 mcg PO DAILY 09/27/17 [History] Losartan Potassium [Cozaar] 100 mg PO DAILY 09/27/17 [History] amLODIPine [Norvasc] 5 mg PO DAILY 09/27/17 [History] predniSONE [Prednisone] 7.5 mg PO DAILY 09/27/17 [History] Aspirin Enteric Coated [Aspirin EC] 81 mg PO DAILY 30 Days #30 tablet. [Rx] Omeprazole 20 mg PO DAILY 30 Days #30 tablet. 09/29/17 [Rx] Simvastatin [Zocor] 20 mg PO HS 30 Days #30 tablet 09/29/17 [Rx] Allergies/Adverse Reactions: 3 Allergy/AdvReac Type Severity Reaction Status Date / Time Sulfa (Sulfonamide Allergy Hives Verified 09/27/17 11:28 Antibiotics) Date of admission: 09/27/17 23:55 Primary care physician: Bartolome Tanner CNP Consults: 09/27/17 23:07 Consult to Neurology [CONS] Routine Consulting Provider: [facility] Reason for Consult: CVA Call Completed: Yes 09/27/17 23:08 Consult to Gastroenterology [CONS] Routine Consulting Provider: [facility]ology [facility] Reason for Consult: severe acid reflux, likely related to hernia. Pt symptomatic Call Completed: No 09/27/17 23:32 Consult for Pharmacy Education [CONS] Stat Reason for Consult: cva Call Completed: No Consult to Physical Therapy [CONS] Routine Comment: Evaluate, develop and implement POC Reason for Consult: cva Does patient have active BEDREST order?: No Is patient medically & hemodynamically stable?: No Patient assessed for mobility or mobilized this visit?: No Consult to Production Support Manager [CONS] Routine Reason for SW Consult: cva dc planning Discharging clinician: Thiago Bender Anticipated date of discharge: 09/29/17 - Constitutional Vitals: Temp Pulse Resp BP Pulse Ox 98.5 F 69 17 122/69 94 09/29/17 11:13 09/29/17 11:13 09/29/17 11:13 09/29/17 11:13 09/29/17 11:13 General appearance: Present: A&O X 3, no acute distress - Head Head exam: Present: atraumatic, normocephalic - Eye Eye exam: Present: PERRL, conjuntiva pink, sclera anicteric Pupils: Present: PERRL - Neck Neck exam general surgery: Present: supple, trachea midline. Absent: lymphadenopathy - Respiratory Respiratory exam: Present: CTAB. Absent: accessory muscle use, rales, rhonchi, wheezes - Cardiovascular Cardiovascular exam: Present: RRR, +S1, +S2. Absent: diastolic murmur, gallop, rubs, systolic murmur - GI/Abdominal GI/Abdominal exam: Present: normal bowel sounds, soft, no peritoneal signs. Absent: distended, tenderness - Extremities Exam Extremities exam: Present: warm, radial pulses palpable and symmetrical. Absent : calf tenderness, cyanotic, pedal edema - Neurological Exam Neurological exam: Present: CN II-XII intact, oriented X3, no focal deficits. Absent: pronater drift, facial droop, speech deficit - Skin Skin exam: Present: dry, intact - Patient Status Disposition: Home, Self-Care Condition: Fair Functional capacity at discharge: independent ambulation Overall status at discharge: patient is back to baseline - Discharge Instructions Follow Up With: Bartolome Tanner CNP [Primary Care Provider] - 10/08/17 11:40 am - Diet and Activity Activity: increase activity as tolerated, resume usual activities as tolerated Diet: low fat, low cholesterol
== END 2017-09-29 16:56 | disposition home or self-care (01) | DRG 66 ==
LOC: 3BNU
PROVIDERS: ADMIT Internal Medicine; ATTEND Internal Medicine Cardiovascular Disease